=== PATIENT | female | born 1940 | race Caucasian/White ===

== ENCOUNTER 2017-04-14 14:07 | Emergency (ER) | payer MEDICARE ==
[2017-04-14 15:28] VITALS: BP 134/64
--- NOTE | 2017-04-14 15:42 | UC ---
Back Pain HPI - HPI Summary HPI Summary: Has chronic back pain/ neck pain. Due to see a neurosurgeon. Worse in the last week, but much worse since last night. Awoke her from sleep. Flexeril gave her 2 hours sleep. Having muscle spasms. - History of Current Complaint Chief Complaint: UCBackPain Stated Complaint: BACK PAIN Time Seen by Provider: 04/14/17 15:32 Hx Obtained From: Patient Onset/Duration: Gradual Onset, Lasting Weeks - 1, Worse Since - this morning. Timing: Constant Severity Initially: Mild Severity Currently: Severe Pain Intensity: 10 Back Pain: Is Discrete @ - left upper back. Character: Sharp, Burning Aggravating Factor(s): Movement - getting up out of a chair, sneezing. Alleviating Factor(s): Rest Associated Signs And Symptoms: Positive: Weakness, Numbness, Tingling. Negative : Swelling, Redness, Bruising, Fever, Bladder Incontinence, Bowel Incontinence - Risk Factors Cauda Equina Risk Factors: Negative Epidural Abscess Risk Factors: Negative - Allergies/Home Medications Allergies/Adverse Reactions: Allergies Allergy/AdvReac Type Severity Reaction Status Date / Time No Known Allergies Allergy Verified 04/14/17 15:25 Home Medications: Home Medications Cyclobenzaprine TAB* [Flexeril 10 MG TAB*] 10 mg PO TID PRN 04/14/17 [History Confirmed 04/14/17] PMH/Surg Hx/FS Hx/Imm Hx - Additional Past Medical History Additional PMH: Degenerative arthritis in the spine. - Surgical History Surgical History: Yes Surgery Procedure, Year, and Place: hysterectomy - Family History Known Family History: Positive: Cardiac Disease, Other - positive FMH for URI Negative: Hypertension, Diabetes - Social History Occupation: Retired Lives: Alone Alcohol Use: None Substance Use Type: None Smoking Status (MU): Former Smoker Have You Smoked in the Last Year: No When Did the Patient Quit Smoking/Using Tobacco: 1970 - Immunization History Most Recent Influenza Vaccination: 2016 Most Recent Tetanus Shot: UTD Most Recent Pneumonia Vaccination: UTD Review of Systems Neurological: Paresthesia, Numbness Is Patient Immunocompromised?: No All Other Systems Reviewed And Are Negative: Yes Physical Exam Triage Information Reviewed: Yes Appearance: Well-Appearing, Well-Nourished, Pain Distress - ongoing spasmotic pain with movement Vital Signs: Initial Vital Signs Temp 98.7 F 04/14/17 15:20 Pulse 67 04/14/17 15:20 Resp 16 04/14/17 15:20 BP 134/64 04/14/17 15:20 Pulse Ox 100 04/14/17 15:20 Vital Signs Reviewed: Yes Eyes: Positive: Conjunctiva Clear Neck exam: Normal Neck: Positive: Other: - limited ROM Respiratory: Positive: Lungs clear Cardiovascular Exam: Normal Musculoskeletal: Positive: ROM Limited @ - upper back., Other: - Tenderness around the rhomboids. Neurological Exam: Normal Neurological: Positive: Other: - pinprick intact from the neck down to the trunk. Psychological Exam: Normal Skin Exam: Normal Back Pain Course/Dx - Differential Dx/Diagnosis Differential Diagnosis/HQI/PQRI: Herniated Disc, Strain, Sprain Provider Diagnoses: Muscle cramp and spasm Discharge - Discharge Plan Condition: Stable Disposition: HOME Prescriptions: Diazepam TAB(*) [Valium TAB(*)] 2 mg PO TID PRN #10 tab MDD 3 PRN Reason: Spasms - Back Patient Education Materials: Muscle Spasm (ED), Diazepam (By mouth) Referrals: Gus Donnelly MD [Primary Care Provider] - Additional Instructions: 1. Hydration. 2. Vitamin D3 2000iu a day. 3. Calcium 1000-1200mg a day. 4. Magnesium 400-500mg twice a day. When your back is better, start yoga. Search "beginning yoga for back pain."
== END 2017-04-14 16:36 | disposition home or self-care (01) ==
LOC: UCCORT 14:07
DX: R25.2 Cramp and spasm (principal); Z87.891 Personal history of nicotine dependence
CPT/HCPCS: 99212; G0463

== ENCOUNTER 2018-10-28 13:44 | Emergency (ER) | payer MEDICARE ==
[2018-10-28 14:47] VITALS: BP 149/62
--- NOTE | 2018-10-28 14:57 | UC ---
Throat Pain/Nasal Anibal HPI - HPI Summary HPI Summary: sx started "awhile ago"--sinus pain and pressure, "teeth hurt", sinus congestion , concerned about a sinus infection; uses Flonase bid prn - History of Current Complaint Chief Complaint: UCGeneralIllness Stated Complaint: SINUS COMPLAINT Time Seen by Provider: 10/28/18 14:47 Hx Obtained From: Patient Hx Last Menstrual Period: N/A Onset/Duration: Sudden Onset, Lasting Weeks Severity: Severe Pain Intensity: 8 Associated Signs & Symptoms: Positive: Dysphagia, Sinus Discomfort, Nasal Discharge - Allergies/Home Medications Allergies/Adverse Reactions: Allergies Allergy/AdvReac Type Severity Reaction Status Date / Time amoxicillin [From Augmentin] AdvReac GI Verified 10/28/18 14:47 clavulanic acid AdvReac GI Verified 10/28/18 14:47 [From Augmentin] Home Medications: Home Medications Baclofen TAB* [Lioresal TAB*] 10 mg PO BEDTIME PRN 10/28/18 [History Confirmed 10/28/18] Meloxicam(NF) [Mobic(NF)] 15 mg PO BEDTIME 10/28/18 [History Confirmed 10/28/18] PMH/Surg Hx/FS Hx/Imm Hx Previously Healthy: Yes - Surgical History Surgical History: Yes Surgery Procedure, Year, and Place: hysterectomy - Family History Known Family History: Positive: Cardiac Disease, Other - positive FMH for URI Negative: Hypertension, Diabetes - Social History Alcohol Use: Rare Substance Use Type: None Smoking Status (MU): Former Smoker Have You Smoked in the Last Year: No When Did the Patient Quit Smoking/Using Tobacco: 1970 - Immunization History Most Recent Influenza Vaccination: 2016 Most Recent Tetanus Shot: UTD Most Recent Pneumonia Vaccination: UTD Review of Systems All Other Systems Reviewed And Are Negative: Yes ENT: Positive: Dental Pain, Sore Throat, Nasal Discharge, Sinus Congestion Neurological: Positive: Headache Is Patient Immunocompromised?: No Physical Exam Triage Information Reviewed: Yes Appearance: Well-Appearing, Well-Nourished, Pain Distress Vital Signs: Initial Vital Signs Temp 97.8 F 10/28/18 14:43 Pulse 65 10/28/18 14:43 Resp 15 10/28/18 14:43 BP 149/62 10/28/18 14:43 Pulse Ox 100 10/28/18 14:43 Vital Signs Reviewed: Yes Eye Exam: Normal ENT: Positive: Pharyngeal erythema, Nasal drainage, TM bulging, TM dull, Tonsillar swelling, Dental tenderness, Sinus tenderness Dental Exam: Normal Neck exam: Normal Respiratory Exam: Normal Respiratory: Positive: Chest non-tender, Lungs clear, Normal breath sounds Cardiovascular Exam: Normal Cardiovascular: Positive: RRR, No Murmur, Pulses Normal Abdominal Exam: Normal Bowel Sounds: Positive: Present Musculoskeletal Exam: Normal Neurological Exam: Normal Psychological Exam: Normal Skin Exam: Normal Throat Pain/Nasal Course/Dx - Course Course Of Treatment: hx obtained, exam performed ,meds reviewed, - Differential Dx/Diagnosis Differential Diagnosis/HQI/PQRI: Influenza, Otitis Media, Pharyngitis, Sinusitis , Tonsillitis, URI Provider Diagnosis: Sinusitis Discharge ED - Sign-Out/Discharge Documenting (check all that apply): Patient Departure All imaging exams completed and their final reports reviewed: No Studies - Discharge Plan Condition: Stable Disposition: HOME Prescriptions: Amoxicillin PO (*) [Amoxicillin 875 MG (*)] 875 mg PO BID #28 tab Patient Education Materials: Sinusitis (ED) Referrals: Gus Donnelly MD [Primary Care Provider] - Additional Instructions: 1. take the medication as prescribed. 2. Flonase once a day and saline nasal spray as needed. 3. Tylenol or MOtrin for pain. 4. follow up if not improving in the next few days. - Billing Disposition and Condition Condition: STABLE Disposition: Home
== END 2018-10-28 15:05 | disposition home or self-care (01) ==
LOC: UCCORT 13:44
DX: J32.9 Chronic sinusitis, unspecified (principal); Z87.891 Personal history of nicotine dependence
CPT/HCPCS: 99212; G0463